=== PATIENT | male | born 1980 | race Caucasian/White ===

== ENCOUNTER 2016-11-02 08:15 | Day surgery (SDC) | payer BC ==
[2016-11-02] MEDS ORDERED: Lactated Ringers 1,000 ML IV SCH (08:30)
[2016-11-02] MEDS ORDERED: Propofol 200 MG/20 ML SDV IV ONE (09:30)
[2016-11-02] MEDS ORDERED: Midazolam 1 MG/ML 2 ML SDV IV ONE (09:30)
--- NOTE | 2016-11-02 10:08 | PCM.OPNOTE ---
- General Post-Op/Procedure Note Date of Surgery/Procedure: 11/02/16 Operative Procedure(s): c scope with bx Findings: descending colon polyp Pre Op Diagnosis: hematochezia Post-Op Diagnosis: descending colon polyp Anesthesia Technique: MAC Primary Surgeon: Von Jain Anesthesia Provider: Jason Mendez Pathology: colon polyp Complications: None Condition: Good Free Text/Narrative:: see dictation
[2016-11-02 10:46] VITALS: BP 111/76
--- NOTE | 2016-11-02 11:11 | OR ---
DATE OF OPERATION: 11/02/2016 SURGEON: Von Jain MD PROCEDURE PERFORMED: Colonoscopy with cold forceps biopsy. PREOPERATIVE DIAGNOSIS: Hematochezia. POSTOPERATIVE DIAGNOSIS: Descending colon polyp. INDICATIONS FOR PROCEDURE: This is a 35-year-old white male, who is referred with a history of intermittent bright red blood per rectum. He was offered and accepted colonoscopy. DESCRIPTION OF PROCEDURE: After an excellent IV sedation was given, the digital rectal exam was performed. No marked abnormality was noted. Flexible colonoscope was inserted and advanced to the cecum without difficulty. The following findings were noted. Ascending colon, unremarkable. Transverse colon, unremarkable. Descending colon, a small polyp about 2 mm in size, biopsied with cold biopsy forceps and sent for permanent. Sigmoid unremarkable. Rectum and anus unremarkable. Colon was deflated. Scope was removed. The patient tolerated the procedure well and was taken to recovery in good condition. /[id number] /LAURAL
== END 2016-11-02 11:02 | disposition home or self-care (01) ==
LOC: FB.SDS 08:15
PROVIDERS: ATTEND Surgery
DX: K63.5 Polyp of colon (principal); Z79.899 Other long term (current) drug therapy; Z88.1 Allergy status to other antibiotic agents; Z98.890 Other specified postprocedural states
CPT/HCPCS: 45380; 88305; J2250; J2704; J7120

== ENCOUNTER 2024-12-03 06:11 | Day surgery (SDC) | payer BC ==
[2024-12-03] MEDS ORDERED: Propofol 200 MG/20 ML SDV IV ONE (06:12)
[2024-12-03] MEDS ORDERED: Sodium Chloride 0.9% 10 ML Syringe FLUSH PRN ×2 (06:15→07:30)
[2024-12-03 06:51] VITALS: BP 106/80; PULSE 98
[2024-12-03] MEDS: Lactated Ringers 1,000 ML IV SCH (07:20)
[2024-12-03] MEDS ORDERED: Lactated Ringers 1,000 ML IV SCH (07:30)
== END 2024-12-03 08:27 | disposition home or self-care (01) ==
LOC: FB.SDS 06:11
PROVIDERS: ATTEND Surgery
DX: K62.5 Hemorrhage of anus and rectum (principal); K57.30 Diverticulosis of large intestine without perforation or abscess without bleeding; E66.9 Obesity, unspecified; F17.290 Nicotine dependence, other tobacco product, uncomplicated; Z88.1 Allergy status to other antibiotic agents; Z80.0 Family history of malignant neoplasm of digestive organs; Z68.31 Body mass index [BMI] 31.0-31.9, adult; Z79.899 Other long term (current) drug therapy; Z86.0101 Personal history of adenomatous and serrated colon polyps
CPT/HCPCS: 45378; A9270; J2003; J2704; J7120

== ENCOUNTER 2024-12-29 08:34 | Day surgery (SDC) | payer BC ==
[~2024-12-29 08:34] MED LIST: Sodium Chloride 0.9% 10 ML Syringe FLUSH PRN
[2024-12-29 08:59] VITALS: BP 127/88; PULSE 73
[2024-12-29] MEDS: Lactated Ringers 1,000 ML IV SCH (09:12)
[2024-12-29] MEDS ORDERED: Propofol 200 MG/20 ML SDV IV ONE (15:08)
== END 2024-12-29 11:10 | disposition home or self-care (01) ==
LOC: FB.SDS 08:34
PROVIDERS: ATTEND Surgery
DX: K29.50 Unspecified chronic gastritis without bleeding (principal); K21.00 Gastro-esophageal reflux disease with esophagitis, without bleeding; K22.89 Other specified disease of esophagus; Z88.1 Allergy status to other antibiotic agents
CPT/HCPCS: 00731; 88305; A9270-GY; J2003; J2704; J7120